=== PATIENT | female | born 1965 | race Hispanic/Latino ===

== ENCOUNTER 2018-05-21 13:08 | Emergency (ER) | payer OTHER ==
[2018-05-21] MEDS: ATIVAN IM PRN (13:25)
[2018-05-21] MEDS ORDERED: ATIVAN ONE (13:29)
[2018-05-21] MEDS: HALDOL IM PRN (13:45)
[2018-05-21] MEDS ORDERED: HALDOL ONE (13:52)
[2018-05-21] MEDS ORDERED: GEODON IM ONE ×2 (13:53→14:23)
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
[2018-05-21 15:35] LABS: BUN/Creatinine Ratio 27; Blood Urea Nitrogen 19 mg/dL (7-17); Calcium 8.7 mg/dL (8.4-10.2); Hemolysis Index 15
[2018-05-21 16:15] LABS: Hematocrit 40.9 % (30.3-42.9); Hemoglobin 12.6 gm/dl (10.1-14.3); Mean Corpuscular HGB Conc 31 % (30-34); Mean Corpuscular Hemoglobin 30 pg (28-32); Mean Corpuscular Volume 96 fl (79-97); Platelet Count 144 K/mm3 (140-440); Red Blood Count 4.27 M/mm3 (3.65-5.03); Red Cell Distribution Width 16.4 % (13.2-15.2)
[2018-05-21] MEDS: PROVENTIL IH PRN (18:21)
[2018-05-21 20:13] LABS: Bilirubin,Urine NEG (Negative); Blood,Urine NEG (Negative); Color,Urine Yellow (Yellow); Mucus,Urine FEW /HPF; Protein,Urine <15 mg/dL mg/dL (Negative); Urobilinogen,Urine < 2.0 mg/dL (<2.0)
[2018-05-21 20:22] LABS: Amphetamine Screen,Urine PRESUMPTIVE NEGATIVE; Benzodiazepines Screen,Urine PRESUMPTIVE NEGATIVE; Cannabinoid Screen,Urine PRESUMPTIVE NEGATIVE; Cocaine Screen,Urine PRESUMPTIVE NEGATIVE; Methadone Screen,Urine PRESUMPTIVE NEGATIVE; Opiate Screen,Urine PRESUMPTIVE NEGATIVE
[2018-05-22] MEDS: HALDOL IM PRN (08:01)
[2018-05-22] MEDS: ZOFRAN ODT PO PRN (08:14)
[2018-05-22] MEDS ORDERED: CATAPRES PO PRN (09:52)
[2018-05-22] MEDS ORDERED: NITROGLYCERIN 0.4 MG SL PRN (09:52)
[2018-05-22] MEDS ORDERED: BUDESONIDE 90 MCG IH SCH (10:00)
[2018-05-22] MEDS: BABY ASPIRIN PO SCH (10:34)
[2018-05-22] MEDS: LASIX PO SCH (10:34)
[2018-05-22] MEDS: K-DUR PO SCH (10:34)
[2018-05-22] MEDS ORDERED: NITROSTAT SL PRN (11:00)
[2018-05-22] MEDS: ATIVAN IM PRN (13:33)
[2018-05-22] MEDS: PULMICORT IH SCH ×2 (14:07→20:50)
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
[2018-05-22] MEDS ORDERED: NACL 0.9% 1000 ML 2,000 ML ONE (17:26)
[2018-05-22] MEDS: GEODON PO SCH (22:39)
[2018-05-23] MEDS: PROVENTIL IH PRN ×3 (04:05→22:42)
[2018-05-23] MEDS: ATIVAN IM PRN (07:38)
[2018-05-23] MEDS: PULMICORT IH SCH ×2 (08:15→22:41)
[2018-05-23] MEDS: K-DUR PO SCH (09:33)
[2018-05-23] MEDS: LASIX PO SCH (09:33)
[2018-05-23] MEDS: GEODON PO SCH ×2 (09:33→22:41)
[2018-05-23] MEDS: BABY ASPIRIN PO SCH (09:33)
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
[2018-05-23] MEDS ORDERED: GEODON IM ONE (23:31)
[2018-05-23] MEDS ORDERED: GEODON IM PRN (23:47)
[2018-05-24] MEDS ORDERED: TYLENOL ONE (00:05)
[2018-05-24] MEDS: TYLENOL PO PRN ×2 (00:34→09:38)
[2018-05-24] MEDS: GEODON PO SCH (09:37)
[2018-05-24] MEDS: BABY ASPIRIN PO SCH (09:37)
[2018-05-24] MEDS: LASIX PO SCH (09:38)
[2018-05-24] MEDS: K-DUR PO SCH (09:38)
[2018-05-24] MEDS: ZOFRAN ODT PO PRN (09:39)
[2018-05-24 10:56] VITALS: BP 156/104
[2018-05-24] MEDS: PULMICORT IH SCH (11:25)
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
[2018-05-24] MEDS: ATIVAN IM PRN (13:37)
--- NOTE | 2018-05-24 14:39 | Emergency Department Report ---
Blank Doc - Documentation Documentation: Patient has been evaluated by mental health, is felt to be stable enough for discharge home, and on my examination, patient is calm and cooperative, knows her medications, and can relate a reasonable plan of follow-up, which she usually does through [facility]. She needs refills on all of her medications, which we will provide today, including Geodon and Ativan, as well as her routine health medications, including Lasix for diuresis, potassium supplementation, as well as Zofran for intermittent nausea. She will make her own contact for follow-up with [facility]. ED Disposition Clinical Impression: Mood disorder Disposition: DC-01 TO HOME OR SELFCARE Is pt being admited?: No Does the pt Need Aspirin: No Condition: Good Additional Instructions: You're stable for discharge home, but she will need to follow up with the [facility] on an outpatient basis. Contact them tomorrow or at the beginning of the week to make a follow-up appointment. We have refilled her medications today and wants her to restart them. These include Ativan for anxiety, Geodon for your mental health, Lasix for fluid , Zofran for nausea, and potassium replacement. Prescriptions: Furosemide [Lasix TAB] 20 mg PO DAILY #30 tablet LORazepam [Ativan] 0.5 mg PO Q6H PRN #60 tablet PRN Reason: Anxiety Ondansetron [Zofran ODT TAB] 4 mg PO Q4HR PRN #30 tab.rapdis PRN Reason: Nausea Potassium Chloride [K-Dur] 20 meq PO QDAY #30 tablet Ziprasidone [Geodon] 20 mg PO BID #60 capsule Referrals: PRIMARY CARE, [Primary Care Provider] - 3-5 Days Time of Disposition: 14:35
[2018-05-24] MEDS ORDERED: HYDROGEN PEROXIDE ONE (15:15)
== END 2018-05-24 17:08 | disposition home or self-care (01) ==
LOC: EEVIPCON 13:08 → ED 13:08
DX: F39 Unspecified mood [affective] disorder (principal); F43.10 Post-traumatic stress disorder, unspecified; Z88.0 Allergy status to penicillin; Z88.8 Allergy status to other drugs, medicaments and biological substances
CPT/HCPCS: 36415; 80048; 80307; 81001; 82550; 85027; 94640; 96372; 99285; G0480; J1630; J2060; J3486; J7030; 80320; Q0162

== ENCOUNTER 2018-06-04 20:23 | Emergency (ER) | payer MEDICARE, OTHER ==
[2018-06-04] MEDS ORDERED: DUONEB *Not for PRN Use IH ONE (20:40)
--- NOTE | 2018-06-04 23:07 | XRay Report ---
FINAL REPORT PROCEDURE: XR CHEST ROUTINE 2V TECHNIQUE: PA and lateral chest radiographs were obtained. CPT 68352 HISTORY: sob COMPARISON: No prior studies are available for comparison. FINDINGS: Heart: Upper normal size. Mediastinum/Vessels: Normal. Lungs/Pleural space: Normal. Bony thorax: There appears to be mild deformity of the left 7th and 8th ribs suggesting old healed fractures.. There is also mild deformity of the right 8th rib posterior laterally again suggesting an old healed fracture. Moderate osteoarthritic change appears to be present in the right glenohumeral joint space. Other: IMPRESSION: Heart size upper normal. No acute cardiac or pulmonary process visualized. Deformity of ribs bilaterally suggesting old trauma..
[2018-06-04 23:33] LABS: Hematocrit 34.6 % (30.3-42.9); Hemoglobin 11.2 gm/dl (10.1-14.3); Mean Corpuscular HGB Conc 32 % (30-34); Mean Corpuscular Hemoglobin 29 pg (28-32); Mean Corpuscular Volume 91 fl (79-97); Platelet Count 318 K/mm3 (140-440); Red Blood Count 3.81 M/mm3 (3.65-5.03); Red Cell Distribution Width 15.8 % (13.2-15.2)
[2018-06-04 23:46] LABS: Calcium 8.9 mg/dL (8.4-10.2)
[2018-06-05] MEDS ORDERED: TYLENOL #3 PO ONE (01:32)
[2018-06-05] MEDS ORDERED: TYLENOL #3 ONE (01:36)
[2018-06-05] MEDS ORDERED: LASIX 80 MG in NACL 0.9% 50 ML IV ONE ×2 (01:52→02:28)
[2018-06-05] MEDS ORDERED: ROCEPHIN/NS 1 GM/50 ML 1 GM/50 ML BAG IV ONE (01:52)
[2018-06-05] MEDS ORDERED: DUONEB *Not for PRN Use IH ONE (01:52)
[2018-06-05] MEDS ORDERED: DECADRON IV ONE (01:52)
[2018-06-05] MEDS ORDERED: LASIX IV ONE (02:31)
[2018-06-05 02:43] LABS: INR 0.83 (0.87-1.13)
[2018-06-05 03:51] LABS: Hyaline Casts,Urine 1 /LPF; Mucus,Urine FEW /HPF
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
[2018-06-05 04:04] LABS: Color,Urine Yellow (Yellow)
[2018-06-05 04:05] LABS: Bilirubin,Urine Negative (Negative); Blood,Urine Negative (Negative); Urobilinogen,Urine < 2.0 mg/dL (<2.0)
[2018-06-05 05:09] VITALS: BP 135/79
== END 2018-06-05 05:10 | disposition home or self-care (01) ==
LOC: ED 20:23
DX: J45.901 Unspecified asthma with (acute) exacerbation (principal); I11.0 Hypertensive heart disease with heart failure; I50.9 Heart failure, unspecified; I25.2 Old myocardial infarction; F41.9 Anxiety disorder, unspecified; Z90.49 Acquired absence of other specified parts of digestive tract; F17.200 Nicotine dependence, unspecified, uncomplicated; Z79.82 Long term (current) use of aspirin; Z79.899 Other long term (current) drug therapy; Z88.0 Allergy status to penicillin; Z88.8 Allergy status to other drugs, medicaments and biological substances
CPT/HCPCS: 36415; 71046; 80048; 81001; 83880; 84484; 85027; 85610; 85730; 93005; 93010; 94640; 96365; 96375; 99284; J0696; J1100; J1940

== ENCOUNTER 2018-12-19 20:33 | Emergency (ER) | payer MEDICARE, OTHER ==
--- NOTE | 2018-12-19 20:50 | Emergency Department Report ---
Blank Doc - Documentation Documentation: This is a 53-year-old female that presents with chest pain with shortness of b reathe and radiation to back and left arm. This initial assessment/diagnostic orders/clinical plan/treatment(s) is/are subject to change based on patient's health status, clinical progression and re- assessment by fellow clinical providers in the ED. Further treatment and workup at subsequent clinical providers discretion. Patient/guardians urged not to elope from the ED as their condition may be serious if not clinically assessed and managed. Initial orders include: 1- Patient sent to MAIN ED for further evaluation and treatment 2-EKG 3- Labs 4- CXR
--- NOTE | 2018-12-19 21:32 | XRay Report ---
PROCEDURE: Chest. TECHNIQUE: AP and lateral views. HISTORY: Chest pain. COMPARISONS: None. FINDINGS: The radiographs are slightly underpenetrated. The heart and mediastinum appear normal. The lungs are clear and well expanded. There are no pleural effusions. The soft tissues and regional skeleton are u nremarkable. IMPRESSION: No evidence of acute disease. This document is electronically signed by Soham eNil MD., December 19 2018 09:30:06 PM ET
[2018-12-19 21:55] LABS: Basophils # (Auto) 0.1 K/mm3 (0.0-0.1); Basophils % (Auto) 0.6 % (0.0-1.8); Eosinophils % (Auto) 0.1 % (0.0-4.3); Hematocrit 40.3 % (30.3-42.9); Hemoglobin 13.7 gm/dl (10.1-14.3); Lymphocytes # (Auto) 1.5 K/mm3 (1.2-5.4); Lymphocytes % (Auto) 8.4 % (13.4-35.0); Mean Corpuscular HGB Conc 34 % (30-34); Mean Corpuscular Volume 90 fl (79-97); Monocytes # (Auto) 0.9 K/mm3 (0.0-0.8); Monocytes % (Auto) 4.9 % (0.0-7.3); Red Blood Count 4.48 M/mm3 (3.65-5.03); Red Cell Distribution Width 13.4 % (13.2-15.2)
[2018-12-19 22:05] LABS: INR 0.89 (0.87-1.13); Platelet Count 285 K/mm3 (140-440)
[2018-12-19 22:06] LABS: Partial Thromboplastin Time 28.3 Sec. (24.2-36.6)
[2018-12-19 22:20] LABS: Alanine Aminotransferase 9 units/L (7-56); Albumin 4.5 g/dL (3.9-5); BUN/Creatinine Ratio 22; Blood Urea Nitrogen 24 mg/dL (7-17); Calcium 9.3 mg/dL (8.4-10.2); Hemolysis Index 1
[2018-12-19] MEDS ORDERED: TORADOL IM ONE (22:36)
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
[2018-12-20 00:39] VITALS: BP 137/108
== END 2018-12-20 00:39 | disposition home or self-care (01) ==
LOC: ED 20:33
DX: K08.89 Other specified disorders of teeth and supporting structures (principal); R07.89 Other chest pain; R06.02 Shortness of breath; R19.7 Diarrhea, unspecified; I11.0 Hypertensive heart disease with heart failure; I50.9 Heart failure, unspecified; I25.2 Old myocardial infarction; J45.909 Unspecified asthma, uncomplicated; F41.9 Anxiety disorder, unspecified; F43.10 Post-traumatic stress disorder, unspecified; Z79.899 Other long term (current) drug therapy; Z90.49 Acquired absence of other specified parts of digestive tract; Z88.8 Allergy status to other drugs, medicaments and biological substances; Z88.0 Allergy status to penicillin
CPT/HCPCS: 36415; 71046; 80053; 84484; 85025; 85379; 85610; 85730; 93005; 93010; 96372; 99284; J1885

== ENCOUNTER 2018-12-20 05:58 | Emergency (ER) | payer OTHER ==
[2018-12-20 06:05] VITALS: BP 158/103
[2018-12-20] MEDS ORDERED: DELTASONE PO ONE (06:29)
[2018-12-20] MEDS ORDERED: PROVENTIL IH ONE ×2 (06:29→06:32)
[2018-12-20] MEDS ORDERED: DELTASONE ONE (06:32)
--- NOTE | 2018-12-20 06:40 | Emergency Department Report ---
ED General Adult HPI - General Chief complaint: Back Pain/Injury Stated complaint: BACK PAIN Time Seen by Provider: 12/20/18 06:29 Source: patient Mode of arrival: Ambulatory Limitations: No Limitations - History of Present Illness Initial comments: 23-year-old female who was just discharged less than 5 hours ago comes back in reporting that she has trouble breathing and back pain. Patient also reports that she was placed on clindamycin but reports she has an allergy to clindamycin. Patient is requesting Levaquin or Keflex. Place and was paced on antibiotics for teeth abscess with a history of penicillin allergies. Patient is requesting a prescription for Combivent. Patient reports that she had walked from her resident back to the emergency room or complaints of back pain. Patient reports that she has a walker and a wheelchair. Patient reports that when she was incarcerated for 8 months that she did not have her walker or wheelchair was not able to get her prescriptions that were prescribed to her back in May 2018. -: week(s) (3) Location: back Severity scale (0 -10): 8 Quality: aching Consistency: intermittent Improves with: medication Associated Symptoms: shortness of breath Treatments Prior to Arrival: NSAID - Related Data Home Medications Medication Instructions Recorded Confirmed Last Taken Furosemide [Lasix] 20 mg PO DAILY 05/22/18 05/22/18 Unknown cloNIDine [Catapres] 0.2 mg PO DAILY PRN 05/22/18 05/22/18 Unknown Previous Rx's Medication Instructions Recorded Last Taken Type LORazepam [Ativan] 0.5 mg PO Q6H PRN #60 tablet 05/24/18 Unknown Rx Ondansetron [Zofran ODT TAB] 4 mg PO Q4HR PRN #30 tab.rapdis 05/24/18 Unknown Rx Ziprasidone [Geodon] 20 mg PO BID #60 capsule 05/24/18 Unknown Rx Azithromycin 250 mg PO DAILY #6 tablet 06/05/18 Unknown Rx Budesonide [Pulmicort Flexhaler] 90 mcg IH DAILY #1 aer.pow.ba 06/05/18 Unknown Rx Cetirizine HCl [ZyrTEC] 10 mg PO DAILY #30 capsule 06/05/18 Unknown Rx Codeine Phosphate/Guaifenesin 5 ml PO TID PRN #120 ml 06/05/18 Unknown Rx [Guaifenesin-Codeine Syrup] Furosemide [Lasix TAB] 20 mg PO DAILY #30 tablet 06/05/18 Unknown Rx Ipratropium/Albuter (Nf) 2 puff IH QID #1 inha 06/05/18 Unknown Rx [Combivent Inhaler] Potassium Chloride [K-Dur] 20 meq PO QDAY #30 tablet 06/05/18 Unknown Rx hydrALAZINE [Apresoline TAB] 25 mg PO Q8HR #30 tab 06/05/18 Unknown Rx levoFLOXacin [Levaquin TAB] 500 mg PO QDAY #10 tablet 06/05/18 Unknown Rx ALBUTEROL Inhaler(NF) [VENTOLIN 1 puff IH QID #1 inha 12/20/18 Unknown Rx Inhaler(NF)] Aspirin [Aspirin BABY CHEW TAB] 81 mg PO QDAY #30 tab.chew 12/20/18 Unknown Rx Chlorhexidine Mouthwash [Peridex] 15 ml MM BID #1 bottle 12/20/18 Unknown Rx Clindamycin [Clindamycin CAP] 300 mg PO Q8H #21 cap 12/20/18 Unknown Rx Nitroglycerin 0.4 mg SL DAILY PRN #30 tab.subl 12/20/18 Unknown Rx Prednisone [predniSONE 10 mg 10 mg PO .TAPER #1 tab.ds.pk 12/20/18 Unknown Rx (6-Day Pack, 21 Tabs)] Allergies Allergy/AdvReac Type Severity Reaction Status Date / Time amitriptyline [From Elavil] Allergy Unknown Unknown Verified 05/22/18 10:06 diphenhydramine Allergy Unknown Unknown Verified 05/22/18 10:06 [From Benadryl] fentanyl Allergy Unknown Unknown Verified 05/22/18 10:06 olanzapine [From Zyprexa] Allergy Unknown Unknown Verified 05/22/18 10:06 Penicillins Allergy Unknown Unknown Verified 05/22/18 10:06 quetiapine [From Seroquel] Allergy Unknown Unknown Verified 05/22/18 10:06 trazodone Allergy Unknown Unknown Verified 05/22/18 10:06 hydroxyzine [From Vistaril] Allergy Unknown Verified 05/22/18 10:06 ED Review of Systems ROS: Stated complaint: BACK PAIN Other details as noted in HPI Comment: All other systems reviewed and negative Respiratory: shortness of breath Musculoskeletal: back pain ED Past Medical Hx - Past Medical History Previous Medical History?: Yes Hx Hypertension: Yes Hx Heart Attack/AMI: (Angina) Hx Congestive Heart Failure: Yes Hx Psychiatric Treatment: (PTSD, anxiety) Hx Asthma: Yes Additional medical history: Lupus - Surgical History Past Surgical History?: Yes Hx Cholecystectomy: Yes Hx Appendectomy: Yes Additional Surgical History: unable to obtain - Social History Smoking Status: Current Every Day Smoker Substance Use Type: None - Medications Home Medications: Home Medications Medication Instructions Recorded Confirmed Last Taken Type Furosemide [Lasix] 20 mg PO DAILY 05/22/18 05/22/18 Unknown History cloNIDine [Catapres] 0.2 mg PO DAILY PRN 05/22/18 05/22/18 Unknown History LORazepam [Ativan] 0.5 mg PO Q6H PRN #60 tablet 05/24/18 Unknown Rx Ondansetron [Zofran ODT TAB] 4 mg PO Q4HR PRN #30 tab.rapdis 05/24/18 Unknown Rx Ziprasidone [Geodon] 20 mg PO BID #60 capsule 05/24/18 Unknown Rx Azithromycin 250 mg PO DAILY #6 tablet 06/05/18 Unknown Rx Budesonide [Pulmicort Flexhaler] 90 mcg IH DAILY #1 aer.pow.ba 06/05/18 Unknown Rx Cetirizine HCl [ZyrTEC] 10 mg PO DAILY #30 capsule 06/05/18 Unknown Rx Codeine Phosphate/Guaifenesin 5 ml PO TID PRN #120 ml 06/05/18 Unknown Rx [Guaifenesin-Codeine Syrup] Furosemide [Lasix TAB] 20 mg PO DAILY #30 tablet 06/05/18 Unknown Rx Ipratropium/Albuter (Nf) 2 puff IH QID #1 inha 06/05/18 Unknown Rx [Combivent Inhaler] Potassium Chloride [K-Dur] 20 meq PO QDAY #30 tablet 06/05/18 Unknown Rx hydrALAZINE [Apresoline TAB] 25 mg PO Q8HR #30 tab 06/05/18 Unknown Rx levoFLOXacin [Levaquin TAB] 500 mg PO QDAY #10 tablet 06/05/18 Unknown Rx ALBUTEROL Inhaler(NF) [VENTOLIN 1 puff IH QID #1 inha 12/20/18 Unknown Rx Inhaler(NF)] Aspirin [Aspirin BABY CHEW TAB] 81 mg PO QDAY #30 tab.chew 12/20/18 Unknown Rx Chlorhexidine Mouthwash [Peridex] 15 ml MM BID #1 bottle 12/20/18 Unknown Rx Clindamycin [Clindamycin CAP] 300 mg PO Q8H #21 cap 12/20/18 Unknown Rx Nitroglycerin 0.4 mg SL DAILY PRN #30 tab.subl 12/20/18 Unknown Rx Prednisone [predniSONE 10 mg 10 mg PO .TAPER #1 tab.ds.pk 12/20/18 Unknown Rx (6-Day Pack, 21 Tabs)] ED Physical Exam - General Limitations: No Limitations General appearance: alert, in no apparent distress, other (patient has been walking up and down fast track at her last visit when she was with another patient.) - Head Head exam: Present: atraumatic, normocephalic - Eye Eye exam: Present: EOMI - ENT ENT exam: Present: mucous membranes moist - Neck Neck exam: Present: normal inspection, full ROM - Respiratory Respiratory exam: Present: prolonged expiratory - Cardiovascular Cardiovascular Exam: Present: tachycardia (just smoked a cigarette) - Extremities Exam Extremities exam: Present: full ROM - Back Exam Back exam: Present: full ROM - Neurological Exam Neurological exam: Present: alert, oriented X3 - Psychiatric Psychiatric exam: Present: normal affect, normal mood - Skin Skin exam: Present: warm, dry, intact, normal color. Absent: rash ED Course Vital Signs 12/20/18 06:03 Temperature 98 F Pulse Rate 102 H Respiratory 22 Rate Blood Pressure 158/103 O2 Sat by Pulse 96 Oximetry ED Medical Decision Making - Medical Decision Making She has been evaluated by this provider and [facility]. Patient will be given a breathing treatment and prednisone 60 mg by mouth. Discussed the patient to stop smoking cigarettes. Discussed the patient to stop taking clindamycin as she reports to me that she has allergic reaction. I instructed patient to follow up with a dentist and they will decide which antibiotics that she needs to be placed on since she is allergic to penicillin and clindamycin. Which those 2 antibiotics aren't good coverage for dental abscess. Patient was given information to follow-up with Shantanu Brantley. Patient will be discharged home on a prednisone pack as well as a prescription for albuterol. Patient was referred to a primary care provider. Critical care attestation.: If time is entered above; I have spent that time in minutes in the direct care of this critically ill patient, excluding procedure time. ED Disposition Clinical Impression: Asthma Qualifiers: Asthma severity: mild Asthma persistence: intermittent Asthma complication type: unspecified Qualified Code(s): J45.20 - Mild intermittent asthma, uncomplicated Disposition: TO HOME OR SELFCARE Is pt being admited?: No Does the pt Need Aspirin: No Condition: Stable Instructions: Asthma (ED) Additional Instructions: The she's inhaler as prescribed. Take prednisone as an described. Increase her water intake take Tylenol or Motrin for back pain. These do not take clindamycin as you reports you have an allergic reaction to. Therefore do need to follow-up with a dentist I have listed one below for your convenience. Follow-up with her primary care provider I have listed one below for your convenience. Prescriptions: Prednisone [predniSONE 10 mg (6-Day Pack, 21 Tabs)] 10 mg PO .TAPER #1 tab.ds.pk ALBUTEROL Inhaler(NF) [VENTOLIN Inhaler(NF)] 1 puff IH QID #1 inha Referrals: CHUCHO GIRON MD [Primary Care Provider] - 3-5 Days [facility] [Outside] - 3-5 Days [facility] [Outside] - 3-5 Days [facility] [Outside] - 3-5 Days
== END 2018-12-20 06:55 | disposition home or self-care (01) ==
LOC: ED 05:58
DX: J45.20 Mild intermittent asthma, uncomplicated (principal); I11.0 Hypertensive heart disease with heart failure; I50.9 Heart failure, unspecified; I25.2 Old myocardial infarction; J45.909 Unspecified asthma, uncomplicated; F43.10 Post-traumatic stress disorder, unspecified; F17.200 Nicotine dependence, unspecified, uncomplicated; Z90.49 Acquired absence of other specified parts of digestive tract; Z88.0 Allergy status to penicillin; Z88.8 Allergy status to other drugs, medicaments and biological substances
CPT/HCPCS: 94640; 99283; J7512

== ENCOUNTER 2019-02-16 23:38 | Emergency (ER) | payer SELFPAY ==
[2019-02-17] MEDS ORDERED: ATROVENT IH ONE ×2 (00:07→00:08)
[2019-02-17] MEDS ORDERED: ATIVAN IV ONE (00:07)
[2019-02-17] MEDS ORDERED: SOLU-Medrol IV ONE (00:07)
[2019-02-17] MEDS ORDERED: PROVENTIL IH ONE ×2 (00:07→00:09)
[2019-02-17 00:40] LABS: Basophils # (Auto) 0.1 K/mm3 (0.0-0.1); Basophils % (Auto) 0.5 % (0.0-1.8); Eosinophils # (Auto) 0.3 K/mm3 (0.0-0.4); Eosinophils % (Auto) 2.5 % (0.0-4.3); Hematocrit 38.2 % (30.3-42.9); Lymphocytes # (Auto) 2.5 K/mm3 (1.2-5.4); Lymphocytes % (Auto) 19.8 % (13.4-35.0); Mean Corpuscular HGB Conc 34 % (30-34); Mean Corpuscular Volume 88 fl (79-97); Monocytes # (Auto) 1.2 K/mm3 (0.0-0.8); Monocytes % (Auto) 9.3 % (0.0-7.3); Platelet Count 351 K/mm3 (140-440); Red Blood Count 4.32 M/mm3 (3.65-5.03); Red Cell Distribution Width 14.2 % (13.2-15.2)
[2019-02-17] MEDS ORDERED: TYLENOL ONE (00:44)
[2019-02-17] MEDS ORDERED: NITROSTAT SL ONE (00:49)
[2019-02-17] MEDS ORDERED: NITROSTAT SL PRN (00:52)
--- NOTE | 2019-02-17 00:53 | XRay Report ---
PROCEDURE: XR CHEST 1V AP TECHNIQUE: Chest radiograph single view. HISTORY: bronchospasm COMPARISONS: 12/19/2018 . FINDINGS: Heart: Normal. Mediastinum/Vessels: Normal. Lungs/Pleural space: Normal. Bony thorax: No acute osseous abnormality. Life support devices: None. IMPRESSION: No acute cardiopulmonary abnormality. This document is electronically signed by Grzegorz Trejo MD., Feb 17 2019 12:51:04 AM ET
[2019-02-17 01:02] VITALS: BP 148/104
[2019-02-17 01:03] LABS: BUN/Creatinine Ratio 24; Blood Urea Nitrogen 26 mg/dL (7-17); Calcium 8.9 mg/dL (8.4-10.2); Hemolysis Index 2
--- NOTE | 2019-02-17 01:58 | Emergency Department Report ---
ED General Adult HPI - General Chief complaint: Chest Pain Stated complaint: CHEST PAIN Time Seen by Provider: 02/17/19 00:06 Source: patient Mode of arrival: Ambulatory Limitations: No Limitations - History of Present Illness Initial comments: Patient is a 53-year-old female with past medical history of COPD CHF coronary artery disease who is presenting with chronic chest pain for 1 month. Patient is in hospice at this time and states that the nitroglycerin patch is not working. Patient is adamant that she is having a heart attack currently. Judith ent also states she has not had her medicines for her neb treatment that should be given by her personal detention the last 3 weeks. Patient does have a wheeze but wheezes chronically. Patient on 2 L of oxygen at baseline. Patient states that she cannot breathe however she is continuously talking in a loud pressured speech and voice. Patient denies any fever but states she has productive sputu m. Severity scale (0 -10): 10 - Related Data Home Medications Medication Instructions Recorded Confirmed Last Taken Furosemide [Lasix] 20 mg PO DAILY 05/22/18 05/22/18 Unknown cloNIDine [Catapres] 0.2 mg PO DAILY PRN 05/22/18 05/22/18 Unknown Previous Rx's Medication Instructions Recorded Last Taken Type LORazepam [Ativan] 0.5 mg PO Q6H PRN #60 tablet 05/24/18 Unknown Rx Ondansetron [Zofran ODT TAB] 4 mg PO Q4HR PRN #30 tab.rapdis 05/24/18 Unknown Rx Ziprasidone [Geodon] 20 mg PO BID #60 capsule 05/24/18 Unknown Rx Azithromycin 250 mg PO DAILY #6 tablet 06/05/18 Unknown Rx Budesonide [Pulmicort Flexhaler] 90 mcg IH DAILY #1 aer.pow.ba 06/05/18 Unknown Rx Cetirizine HCl [ZyrTEC] 10 mg PO DAILY #30 capsule 06/05/18 Unknown Rx Codeine Phosphate/Guaifenesin 5 ml PO TID PRN #120 ml 06/05/18 Unknown Rx [Guaifenesin-Codeine Syrup] Furosemide [Lasix TAB] 20 mg PO DAILY #30 tablet 06/05/18 Unknown Rx Ipratropium/Albuter (Nf) 2 puff IH QID #1 inha 06/05/18 Unknown Rx [Combivent Inhaler] Potassium Chloride [K-Dur] 20 meq PO QDAY #30 tablet 06/05/18 Unknown Rx hydrALAZINE [Apresoline TAB] 25 mg PO Q8HR #30 tab 06/05/18 Unknown Rx levoFLOXacin [Levaquin TAB] 500 mg PO QDAY #10 tablet 06/05/18 Unknown Rx ALBUTEROL Inhaler(NF) [VENTOLIN 1 puff IH QID #1 inha 12/20/18 Unknown Rx Inhaler(NF)] Aspirin [Aspirin BABY CHEW TAB] 81 mg PO QDAY #30 tab.chew 12/20/18 Unknown Rx Chlorhexidine Mouthwash [Peridex] 15 ml MM BID #1 bottle 12/20/18 Unknown Rx Clindamycin [Clindamycin CAP] 300 mg PO Q8H #21 cap 12/20/18 Unknown Rx Nitroglycerin 0.4 mg SL DAILY PRN #30 tab.subl 12/20/18 Unknown Rx Prednisone [predniSONE 10 mg 10 mg PO .TAPER #1 tab.ds.pk 12/20/18 Unknown Rx (6-Day Pack, 21 Tabs)] ALBUTEROL Inhaler(NF) [VENTOLIN 2 puff IH Q4HRT #1 inha 02/17/19 Unknown Rx Inhaler(NF)] ALBUTEROL NEB's [Proventil 0.083% 5 mg IH TID PRN #20 neb 02/17/19 Unknown Rx NEBS] Benzonatate [Tessalon Perles] 100 mg PO Q8HR #10 capsule 02/17/19 Unknown Rx Nitroglycerin 0.3 mg SL Q5MIN PRN #20 tab.subl 02/17/19 Unknown Rx predniSONE [Deltasone] 20 mg PO QDAY #5 tab 02/17/19 Unknown Rx Allergies Allergy/AdvReac Type Severity Reaction Status Date / Time amitriptyline [From Elavil] Allergy Unknown Unknown Verified 05/22/18 10:06 diphenhydramine Allergy Unknown Unknown Verified 05/22/18 10:06 [From Benadryl] fentanyl Allergy Unknown Unknown Verified 05/22/18 10:06 olanzapine [From Zyprexa] Allergy Unknown Unknown Verified 05/22/18 10:06 Penicillins Allergy Unknown Unknown Verified 05/22/18 10:06 quetiapine [From Seroquel] Allergy Unknown Unknown Verified 05/22/18 10:06 trazodone Allergy Unknown Unknown Verified 05/22/18 10:06 hydroxyzine [From Vistaril] Allergy Unknown Verified 05/22/18 10:06 ED Review of Systems ROS: Stated complaint: CHEST PAIN Other details as noted in HPI Comment: All other systems reviewed and negative ED Past Medical Hx - Past Medical History Previous Medical History?: Yes Hx Hypertension: Yes Hx Heart Attack/AMI: (Angina) Hx Congestive Heart Failure: Yes Hx Psychiatric Treatment: (PTSD, anxiety) Hx Asthma: Yes Additional medical history: Lupus - Surgical History Past Surgical History?: Yes Hx Cholecystectomy: Yes Hx Appendectomy: Yes Additional Surgical History: unable to obtain - Social History Smoking Status: Current Every Day Smoker Substance Use Type: None - Medications Home Medications: Home Medications Medication Instructions Recorded Confirmed Last Taken Type Furosemide [Lasix] 20 mg PO DAILY 05/22/18 05/22/18 Unknown History cloNIDine [Catapres] 0.2 mg PO DAILY PRN 05/22/18 05/22/18 Unknown History LORazepam [Ativan] 0.5 mg PO Q6H PRN #60 tablet 05/24/18 Unknown Rx Ondansetron [Zofran ODT TAB] 4 mg PO Q4HR PRN #30 tab.rapdis 05/24/18 Unknown Rx Ziprasidone [Geodon] 20 mg PO BID #60 capsule 05/24/18 Unknown Rx Azithromycin 250 mg PO DAILY #6 tablet 06/05/18 Unknown Rx Budesonide [Pulmicort Flexhaler] 90 mcg IH DAILY #1 aer.pow.ba 06/05/18 Unknown Rx Cetirizine HCl [ZyrTEC] 10 mg PO DAILY #30 capsule 06/05/18 Unknown Rx Codeine Phosphate/Guaifenesin 5 ml PO TID PRN #120 ml 06/05/18 Unknown Rx [Guaifenesin-Codeine Syrup] Furosemide [Lasix TAB] 20 mg PO DAILY #30 tablet 06/05/18 Unknown Rx Ipratropium/Albuter (Nf) 2 puff IH QID #1 inha 06/05/18 Unknown Rx [Combivent Inhaler] Potassium Chloride [K-Dur] 20 meq PO QDAY #30 tablet 06/05/18 Unknown Rx hydrALAZINE [Apresoline TAB] 25 mg PO Q8HR #30 tab 06/05/18 Unknown Rx levoFLOXacin [Levaquin TAB] 500 mg PO QDAY #10 tablet 06/05/18 Unknown Rx ALBUTEROL Inhaler(NF) [VENTOLIN 1 puff IH QID #1 inha 12/20/18 Unknown Rx Inhaler(NF)] Aspirin [Aspirin BABY CHEW TAB] 81 mg PO QDAY #30 tab.chew 12/20/18 Unknown Rx Chlorhexidine Mouthwash [Peridex] 15 ml MM BID #1 bottle 12/20/18 Unknown Rx Clindamycin [Clindamycin CAP] 300 mg PO Q8H #21 cap 12/20/18 Unknown Rx Nitroglycerin 0.4 mg SL DAILY PRN #30 tab.subl 12/20/18 Unknown Rx Prednisone [predniSONE 10 mg 10 mg PO .TAPER #1 tab.ds.pk 12/20/18 Unknown Rx (6-Day Pack, 21 Tabs)] ALBUTEROL Inhaler(NF) [VENTOLIN 2 puff IH Q4HRT #1 inha 02/17/19 Unknown Rx Inhaler(NF)] ALBUTEROL NEB's [Proventil 0.083% 5 mg IH TID PRN #20 neb 02/17/19 Unknown Rx NEBS] Benzonatate [Tessalon Perles] 100 mg PO Q8HR #10 capsule 02/17/19 Unknown Rx Nitroglycerin 0.3 mg SL Q5MIN PRN #20 tab.subl 02/17/19 Unknown Rx predniSONE [Deltasone] 20 mg PO QDAY #5 tab 02/17/19 Unknown Rx ED Physical Exam - General Limitations: No Limitations General appearance: alert, anxious - Head Head exam: Present: atraumatic, normocephalic - Eye Eye exam: Present: normal appearance, PERRL, EOMI - ENT ENT exam: Present: mucous membranes moist - Neck Neck exam: Present: normal inspection - Respiratory Respiratory exam: Present: wheezes. Absent: normal lung sounds bilaterally, respiratory distress, rales, rhonchi, stridor - Cardiovascular Cardiovascular Exam: Present: regular rate, normal rhythm, normal heart sounds. Absent: systolic murmur, diastolic murmur, rubs, gallop - GI/Abdominal GI/Abdominal exam: Present: soft, normal bowel sounds. Absent: distended, tenderness, guarding, rebound, rigid - Extremities Exam Extremities exam: Present: normal inspection - Back Exam Back exam: Present: normal inspection - Neurological Exam Neurological exam: Present: alert, oriented X3 - Psychiatric Psychiatric exam: Present: normal affect, normal mood - Skin Skin exam: Present: warm, dry, intact, normal color. Absent: rash ED Course Vital Signs 02/16/19 02/17/19 02/17/19 23:41 00:00 00:10 Temperature 97.8 F Pulse Rate 119 H 133 H Pulse Rate [ 118 H Anterior Bilateral Throughout] Respiratory 22 25 H Rate Respiratory 22 Rate [Anterior Bilateral Throughout] Blood Pressure 161/106 O2 Sat by Pulse 98 Oximetry 02/17/19 02/17/19 00:15 00:45 Temperature Pulse Rate 128 H 107 H Pulse Rate [ Anterior Bilateral Throughout] Respiratory 27 H 21 Rate Respiratory Rate [Anterior Bilateral Throughout] Blood Pressure 148/104 O2 Sat by Pulse 99 98 Oximetry ED Medical Decision Making - Lab Data Result diagrams: 02/17/19 00:24 02/17/19 00:24 Lab Results 02/17/19 02/17/19 Range/Units 00:24 00:24 WBC 12.5 H (4.5-11.0) K/mm3 RBC 4.32 (3.65-5.03) M/mm3 Hgb 13.0 (10.1-14.3) gm/dl Hct 38.2 (30.3-42.9) % MCV 88 (79-97) fl MCH 30 (28-32) pg MCHC 34 (30-34) % RDW 14.2 (13.2-15.2) % Plt Count 351 (140-440) K/mm3 Lymph % (Auto) 19.8 (13.4-35.0) % Mcdonald % (Auto) 9.3 H (0.0-7.3) % Eos % (Auto) 2.5 (0.0-4.3) % Baso % (Auto) 0.5 (0.0-1.8) % Lymph # 2.5 (1.2-5.4) K/mm3 Mcdonald # 1.2 H (0.0-0.8) K/mm3 Eos # 0.3 (0.0-0.4) K/mm3 Baso # 0.1 (0.0-0.1) K/mm3 Seg Neutrophils % 67.9 (40.0-70.0) % Seg Neutrophils # 8.5 H (1.8-7.7) K/mm3 Sodium 136 L (137-145) mmol/L Potassium 4.6 (3.6-5.0) mmol/L Chloride 98.9 (98-107) mmol/L Carbon Dioxide 23 (22-30) mmol/L Anion Gap 19 mmol/L BUN 26 H (7-17) mg/dL Creatinine 1.1 (0.7-1.2) mg/dL Estimated GFR 52 ml/min BUN/Creatinine Ratio 24 % Glucose 119 H (65-100) mg/dL Calcium 8.9 (8.4-10.2) mg/dL Troponin T < 0.010 (0.00-0.029) ng/mL - EKG Data -: EKG Interpreted by Me EKG shows normal: sinus rhythm, axis, intervals, QRS complexes, ST-T waves Rate: tachycardia - Radiology Data Radiology results: report reviewed (chest x-ray is within normal limits) - Medical Decision Making Patient states she's been having chest pain for approximately 1 month continuously. Patient is on chronic nitroglycerin patches. Patient states that when she was on a nitroglycerin pill this work much better. As told the patient upfront that I had no problem giving her prescription for nitroglycerin pills. Patient did have a wheeze however she is speaking in full sense is very loudly her entire stay. Patient was given a neb treatment states her breathing is somewhat improved. Patient has some yellowish green sputum that she is spitting. Patient likely with chronic bronchitis that is mucoid. Patient given a prescription for short course of steroids as well as albuterol inhaler. Patient is adamant that she is having a heart attack I explained that if she's been having chest pain for one month her troponins would be positive if she were having an [place]. Patient's troponin is normal. Patient to be discharged home. Patient likely with significant anxiety Critical care attestation.: If time is entered above; I have spent that time in minutes in the direct care of this critically ill patient, excluding procedure time. ED Disposition Clinical Impression: Atypical chest pain, Chronic bronchitis, Anxiety reaction Disposition: DC- TO HOME OR SELFCARE Is pt being admited?: No Does the pt Need Aspirin: No Condition: Stable Instructions: Chest Pain (ED), Chronic Bronchitis (ED) Referrals: CHUCHO GIRON MD [Primary Care Provider] - 3-5 Days Time of Disposition: 02:00
== END 2019-02-17 02:20 | disposition home or self-care (01) ==
LOC: ED 23:38
DX: R07.89 Other chest pain (principal); J42 Unspecified chronic bronchitis; F41.9 Anxiety disorder, unspecified; I11.0 Hypertensive heart disease with heart failure; I50.9 Heart failure, unspecified; I25.2 Old myocardial infarction; J45.909 Unspecified asthma, uncomplicated; F17.200 Nicotine dependence, unspecified, uncomplicated; Z90.49 Acquired absence of other specified parts of digestive tract
CPT/HCPCS: 36415; 71045; 80048; 84484; 85025; 93005; 93010; 94640; 96374; 96375; 99283; J2060; J2930